=== PATIENT | female | born 1965 | race Caucasian/White ===

== ENCOUNTER → 2017-02-13 | Outpatient (CLI) | payer OTHER ==
[~2017-02-13] MED LIST: CIPRO 500MG TA500 MG PO; COMPAZINE10 MG PO; FLUOXETINE10 MG PO; LEVSIN 0.1250.125 MG SL; MECLIZINE 25MG25 MG PO; MOTRIN800 MG PO; NOMEDS; NOMEDS *; NORCO 325 MG-51 TAB PO; PERCOCET 5/3251 EACH PO; PHENERGAN 25MG.25 M1 PO; PROZAC 20MG CAP20 MG PO; TAMOXIFEN PO; ZOFRAN ODT8 MG PO
--- NOTE | 2017-02-16 06:01 | RADIOLOGY REPORT PS360 ---
CT CHEST W/ CONTRAST INDICATION: Breast cancer follow-up BREAST CANCER ORDERING PHYSICIAN: Miugel Braden MD PATIENT AGE: 51 years COMPARISON: 08/05/2012 TECHNIQUE: Axial images are obtained with contrast. Sagittal and coronal reformatted images are reviewed as well. FINDINGS: Unremarkable mediastinum. No mediastinal or hilar mass or adenopathy. No axillary adenopathy. Normal heart size. A 2 mm subpleural nodular opacity is present in the left upper lobe anteriorly. Probably benign. This may been present previously but not as well seen due to the technique. No suspicious nodules. No acute or destructive bony lesions. No pleural effusions. IMPRESSION: Essentially negative CT chest with contrast. Please see above for detail.
--- NOTE | 2017-02-16 06:05 | RADIOLOGY REPORT PS360 ---
CT ABD PELVIS W/ CONTRAST CLINICAL INDICATION: Follow-up breast cancer, left-sided pain BREAST CANCER ORDERING PHYSICIAN: Miguel Braden MD PATIENT AGE: 51 years COMPARISON: 08/21/2015 TECHNIQUE: Axial images obtained with sagittal and coronal reformats. PROCEDURE: Oral Contrast: 75 mL is [id number] performed in conjunction with the chest CT IV Contrast: Redicat. FINDINGS: There is mild fatty liver. No focal liver lesions are evident. The gallbladder, spleen, adrenal glands, and pancreas are unremarkable. No renal mass or hydronephrosis or obstructing renal or ureteral calculus. There is a ventral abdominal wall hernia in the upper abdomen containing fat. This is 9 cm superior to the umbilicus. Unremarkable appendix. There is diverticulosis of the colon but no evidence of diverticulitis. There are post hysterectomy changes. No intra-abdominal or pelvic mass evident. No adenopathy. No lytic or blastic change evident. No ascites. IMPRESSION: 1. No convincing evidence of metastatic disease. 2. Mild fatty liver. 3. Ventral abdominal wall hernia containing fat
== END ==
LOC: RAD 08:27
DX: C50.919 Malignant neoplasm of unspecified site of unspecified female breast (principal); Z17.1 Estrogen receptor negative status [ER-]
CPT/HCPCS: Q9967